=== PATIENT | male | born 1975 | race Caucasian/White ===

== ENCOUNTER 2016-09-06 22:12 | Inpatient (IN) | payer BC ==
[~2016-09-06] VITALS: Ht 195.6 cm; Wt 105.2 kg
[2016-09-06 22:54] LABS: EOSINOPHIL (%) 0.3 % (0-5); HEMATOCRIT 24.5 % (38.0-50.0); IMMATURE GRANULOCYTE (%) 0.9 % (0.0-0.7); IMMATURE GRANULOCYTE COUNT 0.1 K/uL; INSTRUMENT ABS NEUTROPHIL CT 12.4 K/uL; LYMPHOCYTE COUNT 1.3 K/uL (1.0-2.8); MCH 22.2 PG (29.0-34.0); MCHC 30.6 G/DL (30.0-36.0); MCV 72.5 FL (86-99); MONOCYTE (%) 10.3 % (3-12); MONOCYTE COUNT 1.6 K/uL (0-0.8); NEUTROPHIL (%) 79.9 % (45-76); NEUTROPHIL COUNT 12.4 K/uL (1.8-6.4); PLATELET COUNT 471 K/uL (156-360); RBC DIS.WIDTH-CV 18.7 % (11.8-14.6); RBC DIS.WIDTH-SD 48.9 % (39-53); RED BLOOD COUNT 3.38 M/uL (4.00-5.50); WHITE BLOOD COUNT 15.6 K/uL (4.1-10.2)
[2016-09-06 23:00] LABS: CHLORIDE 97 mEq/L (99-109); POTASSIUM 3.9 mEq/L (3.7-5.4); SODIUM 131 mEq/L (136-147)
[2016-09-06 23:02] LABS: GLUCOSE 138 mg/dL (70-99)
[2016-09-06 23:03] LABS: ANION GAP 9 MEQ/L (2-14)
[2016-09-06 23:04] LABS: TOTAL BILIRUBIN 0.4 mg/dL (0.0-1.0)
[2016-09-06 23:05] LABS: ALKALINE PHOSPHATASE 68 IU/L (3-129)
[2016-09-06 23:06] LABS: GFR ESTIMATE (CALCULATED) > 59 mL/min/
[2016-09-06 23:07] LABS: UREA NITROGEN (BUN) 15 mg/dL (9-23)
[2016-09-06 23:09] LABS: LIPASE 16 U/L (1.0-51.0)
[2016-09-06 23:24] LABS: TROP-I INTERPRETATION NEGATIVE; TROPONIN-I < 0.01 ng/mL (0.0-0.30)
[2016-09-07] VITALS (14 sets, daily range): BP systolic 126–143; BP diastolic 63–89
[2016-09-07 00:59] LABS: ADD MIUA? NO; BILIRUBIN NEGATIVE; BLOOD NEGATIVE; COLOR YELLOW ((YELLOW)); GLUCOSE (STRIP) NEGATIVE; KETONES NEGATIVE; LEUKOCYTES NEGATIVE; NITRITE NEGATIVE; PROTEIN (STRIP) NEGATIVE; SPECIFIC GRAVITY 1.012 (1.000-1.030); UCUL ADDED? NO; UROBILINOGEN 0.2 MG/DL (0.2-1.0)
[2016-09-07] MEDS ORDERED: ZOFRAN4 MG PO (01:48)
[2016-09-07] MEDS ORDERED: COMPAZINE10 MG PO (01:51)
[2016-09-07] MEDS ORDERED: ZESTORETIC 20-1 EAC1 PO (01:53)
[2016-09-07] MEDS ORDERED: PROBIOTIC1 EAC3 PO (01:53)
[2016-09-07] MEDS ORDERED: IRON325 M1 PO (01:54)
[2016-09-07] MEDS ORDERED: KLONOPIN0.5 M1 PO (01:55)
[2016-09-07] MEDS ORDERED: TYLENOL REGULA325 MG PO (01:56)
[2016-09-07] MEDS ORDERED: NOVOLOG 10100 UNITS/ SC ×2 (01:58→01:59)
[2016-09-07 04:23] LABS: POINT-OF-CARE METER ID UU13113725
[2016-09-07 08:20] LABS: HEMATOCRIT 26.1 % (38.0-50.0); MCH 24.5 PG (29.0-34.0); MCHC 32.6 G/DL (30.0-36.0); MCV 75.2 FL (86-99); MEAN PLAT.VOLUME 9.2 uM^3 (9.0-12.4); PLATELET COUNT 414 K/uL (156-360); RBC DIS.WIDTH-CV 20.5 % (11.8-14.6); RBC DIS.WIDTH-SD 55.7 % (39-53); RED BLOOD COUNT 3.47 M/uL (4.00-5.50); WHITE BLOOD COUNT 16.6 K/uL (4.1-10.2)
[2016-09-07 08:51] LABS: POINT-OF-CARE METER ID UU13113725
[2016-09-07] MEDS ORDERED: INSULIN PUMP SCCONT (13:29)
[2016-09-07] MEDS ORDERED: DAILY VALUE1 EACH PO (13:32)
[2016-09-08] VITALS (14 sets, daily range): BP systolic 118–140; BP diastolic 56–83
[2016-09-08 00:31] LABS: POINT-OF-CARE METER ID UU13113725
[2016-09-08 05:45] LABS: POINT-OF-CARE METER ID UU13113725
[2016-09-08 06:19] LABS: EOSINOPHIL (%) 0.1 % (0-5); HEMATOCRIT 24.2 % (38.0-50.0); IMMATURE GRANULOCYTE (%) 1.1 % (0.0-0.7); IMMATURE GRANULOCYTE COUNT 0.2 K/uL; INSTRUMENT ABS NEUTROPHIL CT 14.2 K/uL; LYMPHOCYTE COUNT 1.2 K/uL (1.0-2.8); MCHC 32.2 G/DL (30.0-36.0); MCV 74.5 FL (86-99); MEAN PLAT.VOLUME 9.1 uM^3 (9.0-12.4); MONOCYTE (%) 10.6 % (3-12); MONOCYTE COUNT 1.9 K/uL (0-0.8); NEUTROPHIL (%) 81.1 % (45-76); NEUTROPHIL COUNT 14.2 K/uL (1.8-6.4); PLATELET COUNT 408 K/uL (156-360); RBC DIS.WIDTH-CV 20.6 % (11.8-14.6); RBC DIS.WIDTH-SD 55.2 % (39-53); RED BLOOD COUNT 3.25 M/uL (4.00-5.50); WHITE BLOOD COUNT 17.6 K/uL (4.1-10.2)
[2016-09-08 06:23] LABS: ANION GAP 10 MEQ/L (2-14); CHLORIDE 98 MEQ/L (99-109); GFR ESTIMATE (CALCULATED) > 59 mL/min/; POTASSIUM 3.9 MEQ/L (3.7-5.4); SAMPLE HEMOLYSIS CHECK 0; SAMPLE ICTERIC CHECK 0; SAMPLE LIPEMIA CHECK 0; SODIUM 133 MEQ/L (136-147); UREA NITROGEN (BUN) 9 mg/dL (9-23)
[2016-09-08 06:28] LABS: GLUCOSE 69 mg/dL (70-99)
[2016-09-08 12:20] LABS: POINT-OF-CARE METER ID UU13113725
[2016-09-08 22:25] LABS: POINT-OF-CARE METER ID UU13113725
[2016-09-09 04:14] VITALS: BP 113/70
[2016-09-09 07:44] VITALS: BP 133/71
[2016-09-09 08:24] LABS: POINT-OF-CARE METER ID UU13113725
[2016-09-09 08:33] LABS: HEMATOCRIT 26.5 % (38.0-50.0); MCH 25.4 PG (29.0-34.0); MCHC 33.6 G/DL (30.0-36.0); MCV 75.5 FL (86-99); MEAN PLAT.VOLUME 9.4 uM^3 (9.0-12.4); PLATELET COUNT 394 K/uL (156-360); RBC DIS.WIDTH-CV 20.7 % (11.8-14.6); RBC DIS.WIDTH-SD 56.2 % (39-53); RED BLOOD COUNT 3.51 M/uL (4.00-5.50); WHITE BLOOD COUNT 18.1 K/uL (4.1-10.2)
[2016-09-09 08:34] LABS: EOSINOPHIL (%) 0.1 % (0-5); IMMATURE GRANULOCYTE (%) 1.1 % (0.0-0.7); IMMATURE GRANULOCYTE COUNT 0.2 K/uL; INSTRUMENT ABS NEUTROPHIL CT 15.1 K/uL; MONOCYTE (%) 9.8 % (3-12); MONOCYTE COUNT 1.8 K/uL (0-0.8); NEUTROPHIL (%) 83.6 % (45-76); NEUTROPHIL COUNT 15.1 K/uL (1.8-6.4)
[2016-09-09 10:06] LABS: INTERNAL CONTROL VALID? YES
[2016-09-09 12:17] VITALS: BP 127/75
[2016-09-09 12:34] LABS: POINT-OF-CARE METER ID UU13113725
[2016-09-09 14:21] LABS: ADD MIUA? YES; BILIRUBIN NEGATIVE; BLOOD NEGATIVE; COLOR YELLOW ((YELLOW)); GLUCOSE (STRIP) 50; KETONES NEGATIVE; LEUKOCYTES NEGATIVE; NITRITE NEGATIVE; PROTEIN (STRIP) NEGATIVE; SPECIFIC GRAVITY 1.023 (1.000-1.030); UROBILINOGEN 0.2 MG/DL (0.2-1.0)
[2016-09-09 14:26] LABS: BACTERIA NONE SEEN /HPF; EPITHELIAL CELLS RARE /HPF; MUCUS 1+ /LPF; RED BLOOD CELLS 0-5 /HPF (0-5); UCUL ADDED? NO; WHITE BLOOD CELLS 0-5 /HPF (0-5)
[2016-09-09] MEDS ORDERED: LEVAQUIN750 MG PO (15:40)
[2016-09-09 15:42] VITALS: BP 129/75
[2016-09-09] MEDS ORDERED: PERCOCET 5/31 TABLET PO (15:42)
[2016-09-09] MEDS ORDERED: GUAIFENESIN WI120 M1 PO (15:42)
== END 2016-09-09 16:57 | disposition home or self-care (01) | DRG 194 ==
LOC: EME 22:12 → 5EAST 09-07 00:32 → EDOF 09-07 00:32 → ENRESERV 09-07 00:39 → 5EAST 09-07 01:31 → ENPENDDIS 09-09 → 5EAST 09-09 16:57
PROVIDERS: Emergency Medicine; Hospitalist; Internal Medicine; Physician Assistant Medical
PROC: 30233N1 Transfusion of Nonautologous Red Blood Cells into Peripheral Vein, Percutaneous Approach (ICD-10-PCS; principal; 2016-09-07)
DX: J18.1 Lobar pneumonia, unspecified organism (principal); Z85.028 Personal history of other malignant neoplasm of stomach; D63.0 Anemia in neoplastic disease; E87.1 Hypo-osmolality and hyponatremia; E10.9 Type 1 diabetes mellitus without complications; J98.11 Atelectasis; J90 Pleural effusion, not elsewhere classified; K21.9 Gastro-esophageal reflux disease without esophagitis; C78.7 Secondary malignant neoplasm of liver and intrahepatic bile duct; I10 Essential (primary) hypertension; R65.10 Systemic inflammatory response syndrome (SIRS) of non-infectious origin without acute organ dysfunction; C16.0 Malignant neoplasm of cardia; D75.89 Other specified diseases of blood and blood-forming organs; G47.00 Insomnia, unspecified; D50.9 Iron deficiency anemia, unspecified; Z96.41 Presence of insulin pump (external) (internal); Z72.0 Tobacco use; Z79.4 Long term (current) use of insulin; Z92.21 Personal history of antineoplastic chemotherapy
CPT/HCPCS: 71020; 71250; 74177; 80048; 80053; 81003; 82948; 83605; 83690; 84484; 85025; 85027; 86900; 86901; 86920; 87040; 87070; 87205; 87449; 93005; 99202; 99281; 99285; J0780; J1650; J1956; J2270; J2405; J2765; J7030; J7120; P9016